=== PATIENT | female | born 1965 | race Two or more races ===

== ENCOUNTER 2017-04-13 14:44 | Emergency (ER) | payer MEDICAID ==
[~2017-04-13] VITALS: Ht 152.4 cm; Wt 60.0 kg
[2017-04-13 14:49] VITALS: BP 116/77
== END 2017-04-13 16:06 | disposition home or self-care (01) ==
LOC: ED 16:05
DX: S97.81XA Crushing injury of right foot, initial encounter (principal); W23.0XXA Caught, crushed, jammed, or pinched between moving objects, initial encounter; Y93.89 Activity, other specified; Y92.89 Other specified places as the place of occurrence of the external cause; Y99.8 Other external cause status
CPT/HCPCS: 99284

== ENCOUNTER 2017-08-25 18:37 | Emergency (ER) | payer MEDICAID ==
[~2017-08-25] VITALS: Ht 152.4 cm; Wt 60.0 kg
[2017-08-25] MEDS ORDERED: AZITHROMYCIN 250 MG TABLET ONE (19:47)
[2017-08-25 19:54] VITALS: BP 94/58
[2017-08-25 19:58] LABS: MICROSCOPIC NOT IND
[2017-08-25 20:00] LABS: CULTURE INDICATED? NO
[2017-08-25] MEDS ORDERED: AZITHROMYCIN 500 MG TABLET PO ONE (20:00)
[2017-08-25] MEDS ORDERED: AMOXICILLIN 500 MG CAPSULE PO ONE (20:00)
== END 2017-08-25 20:19 | disposition home or self-care (01) ==
LOC: ED 20:13
DX: J15.9 Unspecified bacterial pneumonia (principal)
CPT/HCPCS: 71046; 81003; 93005; 99285

== ENCOUNTER 2017-12-31 21:56 | Inpatient (IN) | payer MEDICAID ==
[~2017-12-31] VITALS: Ht 152.4 cm; Wt 63.0 kg
[2017-12-31 22:59] LABS: BASOPHILS # (AUTO) 0.09 x10^3/uL (0-0.1); BASOPHILS % (AUTO) 1 % (0-1); EOSINOPHILS # (AUTO) 0.13 x10^3/uL (0-0.4); EOSINOPHILS % (AUTO) 2 % (1-7); LYMPHOCYTES # (AUTO) 2.37 x10^3/uL (1-3.4); LYMPHOCYTES % (AUTO) 38 % (22-44); MD NO; MEAN CORPUSCULAR HEMOGLOBIN 30.9 pg (27.0-34.8); MEAN CORPUSCULAR HGB CONC 34.2 g/dL (32.4-35.8); MEAN CORPUSCULAR VOLUME 90.3 fL (80-100); MEAN PLATELET VOLUME 8.6 fL (7.4-10.4); MONOCYTES # (AUTO) 0.53 x10^3/uL (0.2-0.8); MONOCYTES % (AUTO) 9 % (2-9); NEUTROPHILS # (AUTO) 3.07 x10^3/uL (1.8-6.8); NEUTROPHILS % (AUTO) 50 % (42-75); PLATELET COUNT 248 x10^3/uL (130-400); RED CELL DISTRIBUTION WIDTH 13.4 % (9.6-15.2)
[2017-12-31 23:08] LABS: ALBUMIN 3.9 g/dL (3.4-5.0); ANION GAP 6 mmol/L (5-15); CALCIUM 8.9 mg/dL (8.5-10.1); CHLORIDE 106 mmol/L (98-107); CREATININE 0.83 mg/dL (0.55-1.02)
[2018-01-01] MEDS ORDERED: ASPIRIN 81 MG TABLET CHEW PO ONE
[2018-01-01] MEDS ORDERED: ONDANSETRON 2MG/ML, 2ML IVPush PRN ×2 (00:30→01:00)
[2018-01-01] MEDS ORDERED: MORPHINE SULFATE 4 MG/ML, 1ML IVPush PRN (00:30)
[2018-01-01] MEDS ORDERED: POLYETHYLENE GLYCOL 17 GM PACKET PO PRN (01:00)
[2018-01-01] MEDS ORDERED: NITROGLYCERIN 0.4 MG BOTTLE (25 TABS) SL PRN (01:00)
[2018-01-01] MEDS ORDERED: morphine SULFATE 10 MG/ML, 1ML IVPush PRN (01:00)
[2018-01-01] MEDS: HEPARIN 5,000 UNITS/ML, 1ML SQ SCH ×3 (01:00→17:00)
[2018-01-01] MEDS ORDERED: BISACODYL 10 MG SUPP PR PRN (01:00)
[2018-01-01 01:25] VITALS: BP 117/76
[2018-01-01] MEDS: ACETAMINOPHEN 325 MG TABLET PO PRN ×3 (02:57→20:48)
[2018-01-01] MEDS: ASPIRIN 81 MG TABLET EC PO SCH (06:02)
[2018-01-01 07:56] VITALS: BP 119/79
[2018-01-01 08:41] LABS: CHOL/HDL RATIO 3.4
[2018-01-01] MEDS: SODIUM CHLORIDE FLUSH 10ML SYR IVF SCH ×2 (08:50→20:52)
[2018-01-01] MEDS: SENNA/DOCUSATE TABLET PO SCH (08:51)
[2018-01-01] MEDS ORDERED: REGADENOSON 0.4 MG/5 ML SYRINGE ONE (08:53)
[2018-01-01 11:41] LABS: TROPONIN I 0.053 ng/mL (0.000-0.045)
[2018-01-01] MEDS ORDERED: BUTALB/APAP/CAFFEINE 50MG/325MG/40MG PO PRN (13:00)
[2018-01-01 14:17] VITALS: BP 98/67
[2018-01-01 20:07] VITALS: BP 109/70
[2018-01-02 00:21] VITALS: BP 124/72
[2018-01-02] MEDS: HEPARIN 5,000 UNITS/ML, 1ML SQ SCH ×2 (01:00→08:32)
[2018-01-02] MEDS: ASPIRIN 81 MG TABLET EC PO SCH (05:49)
[2018-01-02 07:40] VITALS: BP 103/70
[2018-01-02] MEDS: SENNA/DOCUSATE TABLET PO SCH (08:32)
[2018-01-02] MEDS: SODIUM CHLORIDE FLUSH 10ML SYR IVF SCH (08:32)
== END 2018-01-02 11:25 | disposition home or self-care (01) | DRG 74 ==
LOC: ED 01-01 00:23 → 5SO 01-01 00:32 → DCLOUNGE 01-02 11:17
PROVIDERS: ADMIT Internal Medicine; ATTEND Internal Medicine
DX: G90.8 Other disorders of autonomic nervous system (principal); S06.0X9A Concussion with loss of consciousness of unspecified duration, initial encounter; I50.9 Heart failure, unspecified; S01.90XA Unspecified open wound of unspecified part of head, initial encounter; R00.1 Bradycardia, unspecified; W19.XXXA Unspecified fall, initial encounter; Y93.89 Activity, other specified; Y92.89 Other specified places as the place of occurrence of the external cause; Y99.2 Volunteer activity; Z87.01 Personal history of pneumonia (recurrent)
CPT/HCPCS: 36415; 70450; 71045; 78452; 80048; 80061; 82040; 84484; 85025; 93005; 93017; 93306; 93880; 99291; J2785; A9502; C9898